=== PATIENT | female | born 1960 | race Two or more races ===

== ENCOUNTER 2020-10-31 19:31 | Emergency (ER) | payer OTHER ==
[~2020-10-31] VITALS: Ht 160 cm; Wt 54.4 kg
[2020-10-31] MEDS ORDERED: TRAZODONE HCL150 MG (19:44)
[2020-10-31] MEDS ORDERED: SEROQUEL200 MG (19:44)
== END 2020-10-31 22:20 | disposition home or self-care (01) ==
LOC: ER 19:31
DX: S70.11XA Contusion of right thigh, initial encounter (principal); M25.561 Pain in right knee; W18.09XA Striking against other object with subsequent fall, initial encounter; Y93.89 Activity, other specified; Y92.018 Other place in single-family (private) house as the place of occurrence of the external cause; Y99.8 Other external cause status